=== PATIENT | female | born 1985 | race Caucasian/White ===

== ENCOUNTER → 2020-01-06 | Outpatient (CLI) | payer BC, OTHER | LOC: RAD 12:49 | PROVIDERS: ATTEND Internal Medicine | DX: J98.4 Other disorders of lung (principal) ==

== ENCOUNTER → 2020-01-10 | Outpatient (CLI) | payer BC, OTHER | LOC: LAB 09:36 | PROVIDERS: ATTEND Internal Medicine | DX: Z01.812 Encounter for preprocedural laboratory examination (principal); Z20.828 Contact with and (suspected) exposure to other viral communicable diseases ==

== ENCOUNTER → 2020-01-15 | Outpatient (CLI) | payer BC, OTHER ==
[~2020-01-15] MED LIST: MAGNESIUM400 M1 PO; MIRALAX119 GM PO; PROBIOTIC1 EAC7 PO; ZYRTEC10 M5 PO
--- NOTE | 2020-01-27 18:36 | MCT ---
[facility] [place] [address] METHACHOLINE CHALLENGE TEST Name: ANGIE BETANCOURT Room #: REG KRISTIE Millan#: [id number] Admission: 01/15/20 Attend Phys: Jori Avelar MD Discharge: Date of : 83 Report #: [id number] THIS REPORT FOR: //name// COPIES FOR: AGE: 34 SEX/RACE: F/C Height: 67 in Exam Date: 01/15/20 Weight: 115 lbs BTPS: X >> PRE BRONCHODILATOR: PREDICTED BEST %PRED FORCED VITAL CAPACITY (FRC) 4.01 L LPM % FORCED EXP VOL/SEC (FEV1) 3.16 L FEV/FVC % MAX MID-EXP FLOW (FEF 25-75) 3.52 L/SEC L/SEC % PEAK EXP FLOW RATE (FEF MAX) 6.72 L/MIN L/MIN MED-VC RATIO (FEF 50/FEF 50) .09 Baseline: Phenol Saline Level 1: 0.025 mg/ml BEST %PRED %CHANGE BEST %PRED %CHANGE FVC 3.55 L 88 % % FVC 3.36 L 84 % -5 % FEV1 2.31 L 73 % % FEV1 2.35 L 75 % 2 % Level 2: 0.25 mg/ml Level 3: 2.5 mg/ml BEST %PRED %CHANGE BEST %PRED %CHANGE FVC 3.38 L 84 % -5 % FVC 3.02 L 75 % -15 % FEV1 2.04 L 65 % -12 % FEV1 1.66 L 53 % -28 % . Level 4: 10 mg/ml Level 5: 25 mg/ml BEST %PRED %CHANGE BEST %PRED %CHANGE FVC 3.21 L 80 % -10 % FVC L % % FEV1 1.76 L 56 % -24 % FEV1 L % % Post Bronchodilator: 1st Treatment Post Bronchodilator: 2nd Treatment BEST %PRED %CHANGE BEST %PRED %CHANGE FVC 3.03 L 76 % -15 % FVC L % % FEV1 1.85 L 58 % -20 % FEV1 L % % Post Bronchodilator: 3rd Treatment BEST %PRED %CHANGE [facility] [address] [place] [address] METHACHOLINE CHALLENGE TEST Name: ANGIE BETANCOURT Room #: [facility].#: [id number] Admission: 01/15/20 Attend Phys: Jori Avelar MD Discharge: Date of : 83 Report #: [id number] FVC L % % FEV1 L % % >> COMMENTS: Patient had audible wheezes along with a dry nonproductive coughas the test progessed At level 4 her FEV1 dropped to -24%. Patient was complaining of being tired. We sat after bronchodilator was given and loops performed until she was back within normal limits. >> INTERPRETATION: CC: Physician staff STEVENSON Avelar MD Pre-MCT spirometry showed mildly decreased flows. At the third and the fourth level, FEV1 dropped minus 28% from baseline. Post-MCT spirometry showed flows remained reduced. IMPRESSION: Positive MCT test. <ELECTRONICALLY SIGNED> By: Ez Christianson MD 01/27/20 1836 Ez Christianson MD /nt
== END ==
LOC: PUL 09:58
PROVIDERS: ATTEND Internal Medicine
DX: R05 Cough (principal); R06.02 Shortness of breath

== ENCOUNTER → 2020-01-17 | Outpatient (CLI) | payer OTHER | LOC: CAT 01-10 11:19 | PROVIDERS: ATTEND Internal Medicine | DX: J34.89 Other specified disorders of nose and nasal sinuses (principal); R06.02 Shortness of breath; R05 Cough ==

== ENCOUNTER → 2020-01-29 | Outpatient (CLI) | payer BC, OTHER | LOC: LAB | PROVIDERS: ATTEND Pediatrics | DX: Z01.812 Encounter for preprocedural laboratory examination (principal); Z20.828 Contact with and (suspected) exposure to other viral communicable diseases ==

== ENCOUNTER → 2020-02-03 | Outpatient (CLI) | payer BC ==
[~2020-02-03] VITALS: Ht 170.2 cm; Wt 54.4 kg
[2020-02-03 07:40] VITALS: BP 121/66
[2020-02-03 12:17] LABS: CLARITY SLIGHTLY CLOUDY; TOTAL VOLUME 30 mL
[2020-02-03 12:18] LABS: COLOR COLORLESS
[2020-02-03 13:09] LABS: BF NUCLEATED CELLS 56 /mm3; BF RBC 1717 /mm3
[2020-02-03 14:00] LABS: BF MACROPHAGE 95 %; BF NEUTROPHILS 3 %
--- NOTE | 2020-02-05 17:06 | PATH ---
[facility] [address] [place] [address] PATHOLOGY RPT PROCEDURE Name: ANGIE BETANCOURT Room #: REG KRISTIE ..#: [id number] Admission: 02/03/20 Date of : 83 Discharge: Report #: [id number] Path Case #: [id number] Note [facility] Accession Number: [id number] TESTS RESULT FLAG UNITS REF RANGE LAB Clinician Provided Cytology Information No. of containers..01 Other (Miscellaneous) Source: BRUSH TIP RLL DIAGNOSIS: BRUSH TIP RLL INADEQUATE, INSUFFICIENT CELLS FOR STUDY. ESSENTIALLY ACELLULAR SPECIMEN. Pathologist ICD10: 02 R04.2 Signed out by: Jeannine Anderson MD, Pathologist NPI- [id number] Performed by: Jonny Balbuena, Ratchet Setter ([facility]) Gross description: 01 1 TP /LCS 02/04/2020 1228 Local FLAG LEGEND: L-Low Normal,H-High Normal,LL-Alert Low,HH-Alert High <-Panic Low,>-Panic High,A-Abnormal,AA-Critical Abnormal Performed at: [address] [place] [address] Benoit Bullard MD, [address] [address] Jeannine Anderson MD, Specimen Comment: A courtesy copy of this report has been sent to [phone] Specimen Comment: 0115 Specimen Comment: Report sent to / DR MASON Performed at: [address], [place], [place] [id number] MD Benoit Bullard MD Phone: [phone]
--- NOTE | 2020-02-05 17:06 | PATH ---
[facility] [address] [place] [address] PATHOLOGY RPT PROCEDURE Name: ANGIE BETANCOURT Room #: REG KRISTIE Díaz.#: [id number] Admission: 02/03/20 Date of : 83 Discharge: Report #: [id number] Path Case #: [id number] Note [facility] Accession Number: [id number] TESTS RESULT FLAG UNITS REF RANGE LAB Clinician Provided Cytology Information No. of containers..01 Other (Miscellaneous) Source: RLL BAL DIAGNOSIS: RLL BAL NEGATIVE FOR MALIGNANT EPITHELIAL CELLS. NORMAL BRONCHIAL CELLS AND MACROPHAGES ARE PRESENT. PULMONARY MACROPHAGES (DUST CELLS) ARE PRESENT. Pathologist ICD10: 02 R04.2 Signed out by: 02 Jeannine Anderson MD, Pathologist NPI- [id number] Performed by: Jonny Balbuena, Automotive Glass Installer ([facility]) Gross description: 01 25ML, CLEAR COLORLESS, 1 TP /LCS 02/04/2020 1231 Local FLAG LEGEND: L-Low Normal,H-High Normal,LL-Alert Low,HH-Alert High <-Panic Low,>-Panic High,A-Abnormal,AA-Critical Abnormal Performed at: [address] [place] [address] Benoit Bullard MD, [address] [address] Jeannine Anderson MD, Specimen Comment: A courtesy copy of this report has been sent to [phone] Specimen Comment: 0115 Specimen Comment: Report sent to / DR MASON Performed at: [address], [place], [place] [id number] MD Benoit Bullard MD Phone: [phone]
--- NOTE | 2020-02-06 13:08 | PATH ---
[facility] [address] [place] [address] PATHOLOGY RPT PROCEDURE Name: ARLEN OWENS Room #: REG KRISTIE Díaz.#: [id number] Admission: 02/03/20 Date of : 83 Discharge: Report #: [id number] Path Case #: [id number] [facility] Accession Number: [id number] . 01 Material submitted: . bronchus - RLL/LLL TISSUE BIOPSY . 01 Clinical history: . HYPERSENSITIVE AIRWAY . 02 Diagnosis: Lung, right lower lobe tissue, bronchial biopsy: - Benign alveolated lung parenchyma associated with congestion/hemorrhage. - Negative for granulomata or multinucleated giant cells or lymphoplasmacytic infiltrates. - Negative for vasculitis or increase in eosinophils. - Negative for malignancy. (IUV:chapito; 02/05/2020) QMS 02/06/2020 1244 Local . 02 Comment: Examination shows fragments of alveolated lung parenchyma with mild congestion as well as hemorrhage. The interstial spaces are devoid of inflammatory infiltrates, granulomata, multinucleated giant cells or lymphoplasmacytic infiltrates. Concern for hypersensitive pneumonitis is noted. The findings argue against the same. Please note sample may not be entirely retail representative. Clinical correlation is suggested. . This case is co-reviewed by Dr. Marga Valerio, who concurs with my diagnosis. . Findings of this case are conveyed to Dr. Roberto Mariee in the morning of 02/05/2020. (IUV:chapito; 02/05/2020) . 02 Electronically signed: . Jeannine Anderson MD, Pathologist NPI- [id number] . 01 Gross description: . The specimen is received in formalin, labeled "Arlen Owens RLL/CHARLENE biopsy tissue" and consists of 2 minute fragments of neely tissue measuring 0.1 x 0.1 cm and 0.2 x 0.2 cm which are entirely submitted in A1. (SDY; 02/04/2020) SYU/SYU 02/04/2020 1729 Local . 02 Pathologist provided ICD-10: [address] [address] PATHOLOGY RPT PROCEDURE Name: ARLEN OWENS Room #: REG CLVandana Millan#: [id number] Admission: 02/03/20 Date of : 83 Discharge: Report #: [id number] Path Case #: [id number] R04.89 . 02 CPT . [id number] Specimen Comment: A courtesy copy of this report has been sent to [phone] Specimen Comment: 0115 Specimen Comment: Report sent to / DR MASON Performed at: [address], [place] [id number] MD Benoit Bullard MD Phone: [phone] Performed at: [address] [id number] MD Jeannine Anderson MD Phone: [phone]
== END | disposition home or self-care (01) ==
LOC: PUL 06:11
PROVIDERS: ATTEND Pediatrics
DX: R04.89 Hemorrhage from other sites in respiratory passages (principal); J45.909 Unspecified asthma, uncomplicated; Z98.890 Other specified postprocedural states; Z79.899 Other long term (current) drug therapy
CPT/HCPCS: 62110; 62900; 70005

== ENCOUNTER → 2020-05-06 | Outpatient (CLI) | payer OTHER | LOC: RAD 07:18 | PROVIDERS: ATTEND Internal Medicine | DX: R91.8 Other nonspecific abnormal finding of lung field (principal); R04.2 Hemoptysis ==